=== PATIENT | male | born 1970 | race Two or more races ===

== ENCOUNTER 2021-09-20 11:17 | Emergency (ER) | payer OTHER, SELFPAY ==
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
[2021-09-20 11:27] VITALS: BP 180/100; PULSE 88; O2SAT 98
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
[2021-09-20 11:35] VITALS: BP 142/82; PULSE 104; RESP 18; TEMP 36; O2SAT 99; BMI 23.1
[2021-09-20] MEDS: Cyclobenzaprine HCl 10 MG TABLET PO (13:32)
[2021-09-20] MEDS: Ketorolac Tromethamine 30 MG/ML VIAL IM (13:33)
== END 2021-09-20 13:39 | disposition home or self-care (01) ==
PROVIDERS: Emergency Provider Emergency Medicine Emergency Medical Services
DX: Z04.1 Encounter for examination and observation following transport accident (principal); M54.2 Cervicalgia
CPT/HCPCS: 70450; 72125; 96372; 99282; 99284; J1885